=== PATIENT | female | born 1980 | race Caucasian/White ===

== ENCOUNTER 2024-05-17 09:04 | Emergency (ER) | payer BC, MEDICAID ==
[~2024-05-17] VITALS: Ht 157.5 cm; Wt 80.6 kg
[~2024-05-17 09:04] MED LIST: NO HOME MEDS
[2024-05-17] MEDS: ketorolac trometh 30MG/ML vial 30 MG/ML VIAL IM ONE (10:17)
[2024-05-17] MEDS ORDERED: HYDR-3965 PO (10:54)
[2024-05-17] MEDS ORDERED: CYCL-1 PO (10:54)
[2024-05-17] MEDS ORDERED: DICL50TA8 PO (10:54)
[2024-05-17 11:11] VITALS: BP 108/68; PULSE 88; RESP 16; TEMP 98.7; O2SAT 99
== END 2024-05-17 11:24 | disposition home or self-care (01) ==
LOC: ER 09:05
DX: M54.50 Low back pain, unspecified (principal); J45.909 Unspecified asthma, uncomplicated
CPT/HCPCS: 96372; 99283; J1885